=== PATIENT | female | born 1945 | race African-American/Black ===

== ENCOUNTER 2023-12-16 09:18 | Emergency (ER) | payer BC, OTHER ==
[~2023-12-16] VITALS: Ht 160 cm; Wt 96.5 kg
[2023-12-16 10:24] LABS: Basophils # (auto) 0 10 ^3/uL (0-0.2); Basophils % (auto) 0.2 % (0.0-2.0); Eosinophils # (auto) 0 10 ^3/uL (0-0.8); Eosinophils % (auto) 0.1 % (0.0-7.0); Hematocrit 34.9 % (36.0-46.0); Hemoglobin 12.3 g/dL (12.2-16.2); Lymphocytes # (auto) 1.1 10 ^3/uL (0.4-5.4); Lymphocytes % (auto) 5.7 % (10.0-50.0); Mean Corpuscular Hemoglobin 33.9 pg (28.0-32.0); Mean Corpuscular Hgb Conc. 35.2 g/dL (32.0-36.0); Mean Corpuscular Volume 96.3 fL (80.0-100.0); Monocytes # (auto) 1.4 10 ^3/uL (0-1.3); Monocytes % (auto) 7.2 % (0.0-12.0); Neutrophils # (auto) 16.9 10 ^3/uL (1.6-8.6); Neutrophils % (auto) 86.8 % (37.0-80.0); Platelet Count (auto) 283 10^3/uL (140-450); Red Blood Cells 3.62 10^6/uL (4.0-5.20); Red Cell Distribution Width 14.5 % (11.8-14.3); White Blood Cell 19.4 10^3/uL (4.4-10.8)
[2023-12-16 10:34] LABS: Chloride 102 mmol/L (98-107); Potassium 2.9 mmol/L (3.5-5.1); Sodium 137 mmol/L (136-145)
[2023-12-16 10:35] LABS: Anion Gap 7 (5-15); Calcium 9.2 mg/dL (8.7-10.4); Carbon Dioxide 28 mmol/L (20-30)
[2023-12-16 10:40] LABS: BUN/Creatinine Ratio 16.8 (10.0-20.0); Blood Urea Nitrogen 16 mg/dL (9-23); Glucose 96 mg/dL (74-106)
[2023-12-16] MEDS: SODIUM CHLORIDE 0.9% 1,000 ML IV ONE (11:15)
[2023-12-16] MEDS ORDERED: MAGNESIUM SULFATE 1GM/100ML 100 ML IV SCH (14:15)
[2023-12-16] MEDS ORDERED: POTASSIUM CHL 20 Meq TABLET PO ONE (14:15)
[2023-12-16] MEDS ORDERED: BACDST PO (16:27)
[2023-12-16] MEDS ORDERED: HYDR-4902 PO (17:13)
[2023-12-16] MEDS: HYDROcodone-ACET 5/325MG TAB PO ONE (18:03)
[2023-12-16 18:24] VITALS: BP 120/75; PULSE 85; RESP 20; TEMP 98.8; O2SAT 98
[2023-12-16] MEDS: KETOROLAC TROMETH 30 MG/ML 1ML VIAL IV ONE (19:05)
[2023-12-16] MEDS: cefTRIAXone 1GM/50ML D5W 50 ML IV ONE (19:06)
[2023-12-16] MEDS: metroNIDAZOLE 500MG/100ML 100 ML IV ONE (19:38)
== END 2023-12-16 20:04 | disposition home or self-care (01) ==
LOC: ER 09:18 → EDBD 09:18 → ER 20:04
DX: A41.9 Sepsis, unspecified organism (principal); E87.6 Hypokalemia; M51.36 Other intervertebral disc degeneration, lumbar region; N39.0 Urinary tract infection, site not specified; I10 Essential (primary) hypertension
CPT/HCPCS: 36415; 72100; 80048; 83605; 84484; 85025; 87040; 87077; 87186; 93005; 96361; 96365; 96368; 96375; 99291; J0696; J1885; J3490; J7030

== ENCOUNTER 2023-12-17 10:53 | Inpatient (IN) | payer BC ==
[~2023-12-17] VITALS: Ht 165.1 cm; Wt 105.3 kg
[~2023-12-17 10:53] MED LIST: BACDST PO; HYDR-4902 PO
[2023-12-17] MEDS: ACETAMINOPHEN 325 MG TAB PO ONE (11:18)
[2023-12-17] MEDS: SODIUM CHLORIDE 0.9% 1,000 ML IV ONE ×2 (11:29→11:32)
[2023-12-17] MEDS: KETOROLAC TROMETH 30 MG/ML 1ML VIAL IV ONE (11:32)
[2023-12-17] MEDS: cefTRIAXone 1GM/50ML D5W 50 ML IV ONE ×2 (11:32→13:57)
[2023-12-17 11:34] VITALS: RESP 18; O2SAT 98
[2023-12-17 11:46] LABS: Basophils # (auto) 0 10 ^3/uL (0-0.2); Basophils % (auto) 0.1 % (0.0-2.0); Eosinophils # (auto) 0 10 ^3/uL (0-0.8); Hematocrit 35.2 % (36.0-46.0); Hemoglobin 12.1 g/dL (12.2-16.2); Lymphocytes # (auto) 1.2 10 ^3/uL (0.4-5.4); Lymphocytes % (auto) 6.6 % (10.0-50.0); Mean Corpuscular Hemoglobin 33.5 pg (28.0-32.0); Mean Corpuscular Hgb Conc. 34.4 g/dL (32.0-36.0); Mean Corpuscular Volume 97.4 fL (80.0-100.0); Monocytes # (auto) 1.4 10 ^3/uL (0-1.3); Neutrophils # (auto) 14.9 10 ^3/uL (1.6-8.6); Neutrophils % (auto) 85.3 % (37.0-80.0); Platelet Count (auto) 257 10^3/uL (140-450); Red Blood Cells 3.61 10^6/uL (4.0-5.20); Red Cell Distribution Width 14.5 % (11.8-14.3); White Blood Cell 17.5 10^3/uL (4.4-10.8)
[2023-12-17 12:24] LABS: Chloride 102 mmol/L (98-107); Sodium 137 mmol/L (136-145)
[2023-12-17 12:25] LABS: Anion Gap 14 (5-15); Carbon Dioxide 21 mmol/L (20-30)
[2023-12-17 12:30] LABS: BUN/Creatinine Ratio 16.7 (10.0-20.0); Blood Urea Nitrogen 17 mg/dL (9-23); Glucose 158 mg/dL (74-106)
[2023-12-17] MEDS ORDERED: NITROGLYCERIN 0.4 MG SL TAB SL PRN (13:30)
[2023-12-17] MEDS ORDERED: VANCOMYCIN PER PHARMACY 0 MG IV SCH (13:30)
[2023-12-17] MEDS ORDERED: ONDANSETRON HCL 4 MG/2 ML VIAL IV PRN (13:30)
[2023-12-17] MEDS: POTASSIUM CHL 20 Meq TABLET PO ONE (14:01)
[2023-12-17 14:28] LABS: Urine Bacteria MOD /hpf (None Seen); Urine Blood 1+ /uL (Negative); Urine Clarity Turbid (Clear); Urine Mucus FEW (None Seen); Urine Protein, UAD 3+ (Negative); Urine Specific Gravity 1.034 (1.001-1.035); Urine Urobilinogen 2 mg/dL (Negative); Urine WBC 17 /hpf (0 - 5)
[2023-12-17 14:31] LABS: Urine Color Amber (Yellow)
[2023-12-17 15:27] VITALS: PULSE 76; RESP 17; O2SAT 98
[2023-12-17] MEDS: SODIUM CHLORIDE 0.9% 1,000 ML IV SCH (15:34)
[2023-12-17] MEDS: MAGNESIUM SULFATE 1GM/100ML 100 ML IV SCH (15:34)
[2023-12-17] MEDS: VANCOMYCIN 1GM/200ML 200 ML IV SCH (15:34)
[2023-12-17] MEDS: hydrALAZINE HCL 20 MG/ML VL IV PRN (17:27)
[2023-12-17] MEDS: POTASSIUM CHLORIDE 20 MEQ, LIDOCAINE 1% (LOCAL ANESTH.) 2 ML in SODIUM CHL 0.9% 100 ML IV ONE (17:27)
[2023-12-17 18:56] VITALS: BP 148/79; PULSE 79; RESP 18; TEMP 100.9; O2SAT 98
[2023-12-17 21:00] VITALS: BP 110/87; PULSE 77; RESP 18; TEMP 99.1; O2SAT 98
[2023-12-18] VITALS (7 sets, daily range): BP systolic 126–166; BP diastolic 76–106; PULSE 69–91; RESP 16–18; TEMP 97.9–102.1; O2SAT 96–99
[2023-12-18] MEDS: ACETAMINOPHEN 325 MG TAB PO PRN (00:39)
[2023-12-18] MEDS: HYDROcodone-ACET 5/325MG TAB PO PRN (02:28)
[2023-12-18 07:11] LABS: Anion Gap 10 (5-15); Carbon Dioxide 22 mmol/L (20-30); Chloride 106 mmol/L (98-107); Sodium 138 mmol/L (136-145)
[2023-12-18 07:12] LABS: Calcium 8.5 mg/dL (8.7-10.4)
[2023-12-18 07:15] LABS: Basophils # (auto) 0 10 ^3/uL (0-0.2); Basophils % (auto) 0.1 % (0.0-2.0); Eosinophils # (auto) 0 10 ^3/uL (0-0.8); Eosinophils % (auto) 0.1 % (0.0-7.0); Hematocrit 32.6 % (36.0-46.0); Hemoglobin 11.1 g/dL (12.2-16.2); Lymphocytes # (auto) 1.7 10 ^3/uL (0.4-5.4); Lymphocytes % (auto) 11.5 % (10.0-50.0); Mean Corpuscular Hemoglobin 33.2 pg (28.0-32.0); Mean Corpuscular Volume 97.7 fL (80.0-100.0); Monocytes # (auto) 1.5 10 ^3/uL (0-1.3); Monocytes % (auto) 10.5 % (0.0-12.0); Neutrophils # (auto) 11.3 10 ^3/uL (1.6-8.6); Neutrophils % (auto) 77.8 % (37.0-80.0); Nucleated Red Blood Cells % 0.2 %; Platelet Count (auto) 242 10^3/uL (140-450); Red Blood Cells 3.33 10^6/uL (4.0-5.20); Red Cell Distribution Width 14.7 % (11.8-14.3); White Blood Cell 14.5 10^3/uL (4.4-10.8)
[2023-12-18 07:16] LABS: Glucose 107 mg/dL (74-106)
[2023-12-18 07:17] LABS: BUN/Creatinine Ratio 20.5 (10.0-20.0); Blood Urea Nitrogen 17 mg/dL (9-23)
[2023-12-18] MEDS: cefTRIAXone 1GM/50ML D5W 50 ML IV SCH (08:48)
[2023-12-18] MEDS: ENOXAPARIN SOD 40 MG/0.4 ML SYRINGE SC SCH (10:17)
[2023-12-18] MEDS: POTASSIUM CHL 20 Meq TABLET PO ONE (12:28)
[2023-12-18] MEDS: SODIUM CHLORIDE 0.9% 1,000 ML IV SCH (12:34)
[2023-12-19 05:00] VITALS: BP 129/67; PULSE 81; RESP 17; TEMP 97.1; O2SAT 95
[2023-12-19 07:25] LABS: Basophils # (auto) 0 10 ^3/uL (0-0.2); Basophils % (auto) 0.1 % (0.0-2.0); Eosinophils # (auto) 0 10 ^3/uL (0-0.8); Eosinophils % (auto) 0.2 % (0.0-7.0); Hematocrit 32.9 % (36.0-46.0); Hemoglobin 11.4 g/dL (12.2-16.2); Lymphocytes # (auto) 1.9 10 ^3/uL (0.4-5.4); Lymphocytes % (auto) 13.3 % (10.0-50.0); Mean Corpuscular Hemoglobin 33.6 pg (28.0-32.0); Mean Corpuscular Hgb Conc. 34.7 g/dL (32.0-36.0); Mean Corpuscular Volume 96.7 fL (80.0-100.0); Monocytes # (auto) 1.7 10 ^3/uL (0-1.3); Monocytes % (auto) 11.4 % (0.0-12.0); Nucleated Red Blood Cells % 0.1 %; Platelet Count (auto) 284 10^3/uL (140-450); Red Cell Distribution Width 14.6 % (11.8-14.3); White Blood Cell 14.6 10^3/uL (4.4-10.8)
[2023-12-19 08:00] VITALS: PULSE 89
[2023-12-19 08:27] LABS: Anion Gap 11 (5-15); Carbon Dioxide 22 mmol/L (20-30); Chloride 102 mmol/L (98-107); Potassium 3.2 mmol/L (3.5-5.1); Sodium 135 mmol/L (136-145)
[2023-12-19 08:28] LABS: Calcium 8.5 mg/dL (8.7-10.4)
[2023-12-19 08:32] LABS: Glucose 96 mg/dL (74-106)
[2023-12-19 08:33] LABS: BUN/Creatinine Ratio 14.8 (10.0-20.0); Blood Urea Nitrogen 9 mg/dL (9-23); Magnesium 1.8 mg/dL (1.6-2.6)
[2023-12-19 09:00] VITALS: BP 198/111; PULSE 89; RESP 18; TEMP 98.3; O2SAT 97
[2023-12-19] MEDS: NIFEdipine ER 30 MG TAB PO ONE (10:58)
[2023-12-19] MEDS: MORPHINE SULFATE INJ 2 MG/ml SYRG IV PRN ×2 (11:00)
[2023-12-19] MEDS: VANCOMYCIN 750mg/150ml 150 ML IV SCH (11:31)
[2023-12-19 13:00] VITALS: BP 195/99; PULSE 90; RESP 18; TEMP 97.8; O2SAT 99
[2023-12-19] MEDS: MAGNESIUM SULFATE 1GM/100ML 100 ML IV SCH (13:06)
[2023-12-19] MEDS: MAGNESIUM SULFATE 1GM/100ML 100 ML IV ONE (15:08)
[2023-12-19] MEDS: LIDOCAINE 5% TOPICAL PATCH TOP ONE (16:44)
[2023-12-19] MEDS: POTASSIUM CHL 20 Meq TABLET PO ONE (16:44)
[2023-12-19 17:00] VITALS: BP 199/111; PULSE 115; RESP 19; TEMP 99.7; O2SAT 100
[2023-12-19 21:00] VITALS: BP 148/95; PULSE 95; RESP 20; TEMP 99; O2SAT 99
[2023-12-19] MEDS: LISINOPRIL 20 MG TAB PO SCH (21:50)
[2023-12-20] VITALS (7 sets, daily range): BP systolic 104–138; BP diastolic 7–78; PULSE 61–105; RESP 16–20; TEMP 97.7–98.7; O2SAT 96–99
[2023-12-20 08:15] LABS: Anion Gap 10 (5-15); Carbon Dioxide 27 mmol/L (20-30); Chloride 96 mmol/L (98-107); Potassium 3.3 mmol/L (3.5-5.1); Sodium 133 mmol/L (136-145)
[2023-12-20 08:16] LABS: Calcium 9.1 mg/dL (8.7-10.4)
[2023-12-20 08:20] LABS: Glucose 132 mg/dL (74-106)
[2023-12-20 08:21] LABS: BUN/Creatinine Ratio 12.3 (10.0-20.0); Blood Urea Nitrogen 8 mg/dL (9-23)
[2023-12-20 09:39] LABS: Basophils # (auto) 0 10 ^3/uL (0-0.2); Basophils % (auto) 0.2 % (0.0-2.0); Eosinophils # (auto) 0 10 ^3/uL (0-0.8); Eosinophils % (auto) 0.2 % (0.0-7.0); Hematocrit 37.2 % (36.0-46.0); Hemoglobin 12.8 g/dL (12.2-16.2); Lymphocytes # (auto) 1.1 10 ^3/uL (0.4-5.4); Lymphocytes % (auto) 9.5 % (10.0-50.0); Mean Corpuscular Hemoglobin 33.5 pg (28.0-32.0); Mean Corpuscular Hgb Conc. 34.4 g/dL (32.0-36.0); Mean Corpuscular Volume 97.3 fL (80.0-100.0); Monocytes # (auto) 1.4 10 ^3/uL (0-1.3); Monocytes % (auto) 12.4 % (0.0-12.0); Neutrophils # (auto) 8.8 10 ^3/uL (1.6-8.6); Neutrophils % (auto) 77.7 % (37.0-80.0); Nucleated Red Blood Cells % 0.2 %; Platelet Count (auto) 295 10^3/uL (140-450); Red Blood Cells 3.83 10^6/uL (4.0-5.20); Red Cell Distribution Width 14.8 % (11.8-14.3); White Blood Cell 11.3 10^3/uL (4.4-10.8)
[2023-12-20] MEDS: LIDOCAINE 5% TOPICAL PATCH TOP SCH (09:39)
[2023-12-20] MEDS: NIFEdipine ER 30 MG TAB PO SCH (09:39)
[2023-12-20] MEDS: POTASSIUM CHL 20 Meq TABLET PO ONE (09:51)
[2023-12-20] MEDS ORDERED: LISI20TA56 PO (14:31)
[2023-12-20] MEDS ORDERED: LIDO5DIS21 TOP (14:31)
== END 2023-12-20 17:45 | disposition home health service (06) | DRG 871 ==
LOC: ER 10:53 → OVERFLOW 13:25 → WEST WING 18:43
PROVIDERS: ADMIT Hospitalist; ATTEND Hospitalist
DX: A41.9 Sepsis, unspecified organism (principal); N17.0 Acute kidney failure with tubular necrosis; I48.20 Chronic atrial fibrillation, unspecified; N39.0 Urinary tract infection, site not specified; M51.36 Other intervertebral disc degeneration, lumbar region; E66.9 Obesity, unspecified; M54.9 Dorsalgia, unspecified; I16.0 Hypertensive urgency; E87.6 Hypokalemia; M47.816 Spondylosis without myelopathy or radiculopathy, lumbar region; E86.0 Dehydration; I10 Essential (primary) hypertension; Z79.891 Long term (current) use of opiate analgesic; Z79.899 Other long term (current) drug therapy; Z68.37 Body mass index [BMI] 37.0-37.9, adult
CPT/HCPCS: 36415; 72131; 80048; 80202; 81001; 83605; 83735; 84484; 85025; 87040; 87086; 96365; 96375; G0378; J1885; J2001

== ENCOUNTER 2023-12-27 06:22 | Inpatient (IN) | payer BC ==
[~2023-12-27] VITALS: Ht 165.1 cm; Wt 96.7 kg
[~2023-12-27 06:22] MED LIST changes: -HYDR-4902 PO; +LIDO5DIS21 TOP; +LISI20TA56 PO
[2023-12-27 07:43] LABS: Basophils # (auto) 0.1 10 ^3/uL (0-0.2); Basophils % (auto) 0.7 % (0.0-2.0); Eosinophils # (auto) 0 10 ^3/uL (0-0.8); Eosinophils % (auto) 0.4 % (0.0-7.0); Hematocrit 31.8 % (36.0-46.0); Hemoglobin 11.3 g/dL (12.2-16.2); Lymphocytes # (auto) 1.3 10 ^3/uL (0.4-5.4); Lymphocytes % (auto) 16.3 % (10.0-50.0); Mean Corpuscular Hemoglobin 33.9 pg (28.0-32.0); Mean Corpuscular Hgb Conc. 35.4 g/dL (32.0-36.0); Mean Corpuscular Volume 95.9 fL (80.0-100.0); Monocytes # (auto) 0.9 10 ^3/uL (0-1.3); Monocytes % (auto) 11.1 % (0.0-12.0); Neutrophils # (auto) 5.5 10 ^3/uL (1.6-8.6); Neutrophils % (auto) 71.5 % (37.0-80.0); Nucleated Red Blood Cells % 0.1 %; Platelet Count (auto) 506 10^3/uL (140-450); Red Blood Cells 3.32 10^6/uL (4.0-5.20); Red Cell Distribution Width 14.3 % (11.8-14.3); White Blood Cell 7.7 10^3/uL (4.4-10.8)
[2023-12-27 07:44] LABS: Alanine Aminotransferase 13 U/L (7-40); Albumin 3.8 g/dL (3.2-4.8); Alkaline Phosphatase 65 U/L (46-116); Anion Gap 10 (5-15); Aspartate Aminotransferase 17 U/L (13-40); BUN/Creatinine Ratio 18.7 (10.0-20.0); Bilirubin, Total 0.5 mg/dL (0.2-1.0); Blood Urea Nitrogen 37 mg/dL (9-23); Carbon Dioxide 24 mmol/L (20-31); Chloride 99 mmol/L (98-107); Glucose 84 mg/dL (74-106); INR 1.04 (0.9-1.15); Magnesium 1.9 mg/dL (1.6-2.6); Partial Thromboplastin Time 27.1 SEC (24.5-34.5); Potassium 3.8 mmol/L (3.5-5.1); Sodium 133 mmol/L (136-145); Total Protein 7.2 g/dL (5.7-8.2)
[2023-12-27 08:30] VITALS: PULSE 51; RESP 12; O2SAT 97
[2023-12-27] MEDS: DexAMETHasone SOD PHOS 10MG/1ML VIAL INJ IV ONE (10:41)
[2023-12-27] MEDS: MORPHINE SULFATE 4 MG/ML SYR/VIAL IV ONE (10:43)
[2023-12-27] MEDS ORDERED: MORPHINE SULFATE INJ 2 MG/ml SYRG IV PRN (16:45)
[2023-12-27] MEDS ORDERED: HYDROcodone-ACET 5/325MG TAB PO PRN ×2 (16:45)
[2023-12-27] MEDS ORDERED: NITROGLYCERIN 0.4 MG SL TAB SL PRN (16:45)
[2023-12-27 17:29] LABS: Triglycerides 94 mg/dL (< 150)
[2023-12-27 17:30] LABS: LDL Cholesterol 114 mg/dL (< 100)
[2023-12-27 17:31] LABS: Cholesterol 161 mg/dL (< 200); HDL Cholesterol 35 mg/dL (40-59)
[2023-12-27 20:00] VITALS: PULSE 48; RESP 15; O2SAT 96
[2023-12-27] MEDS ORDERED: NITR100C6 PO (21:44)
[2023-12-27] MEDS ORDERED: HYDR-4611 (21:44)
[2023-12-27] MEDS ORDERED: MET50T PO (21:44)
[2023-12-27] MEDS ORDERED: APIX5TAB PO (21:44)
[2023-12-27 21:47] VITALS: BP 141/58; PULSE 46; RESP 19; TEMP 98; O2SAT 91
[2023-12-27] MEDS: CYCLOBENZAPRINE HCL 10 MG TAB PO SCH (22:52)
[2023-12-27] MEDS: SENNA 8.6 MG TAB PO SCH (22:52)
[2023-12-27] MEDS: ATORVASTATIN 20 MG TAB PO SCH (22:53)
[2023-12-28] VITALS (8 sets, daily range): BP systolic 108–149; BP diastolic 54–97; PULSE 41–83; RESP 16–22; TEMP 97.5–98.7; O2SAT 91–100
[2023-12-28] MEDS: ENOXAPARIN SOD 30 MG/0.3 ML SYRINGE SC SCH (09:46)
[2023-12-28] MEDS: ASPirin-EC 81 mg tab PO SCH (09:46)
[2023-12-28] MEDS: LISINOPRIL 20 MG TAB PO SCH (09:46)
[2023-12-28] MEDS: LIDOCAINE 5% TOPICAL PATCH TOP SCH (09:47)
[2023-12-28] MEDS ORDERED: ENOXAPARIN SOD 40 MG/0.4 ML SYRINGE SC SCH (10:00)
[2023-12-29] VITALS (8 sets, daily range): BP systolic 100–123; BP diastolic 46–50; PULSE 43–91; RESP 14–18; TEMP 97.5–98.5; O2SAT 94–100
[2023-12-29] MEDS ORDERED: CYCL-611 PO (15:25)
[2023-12-29] MEDS ORDERED: HYDR-4611 PO (15:25)
[2023-12-29] MEDS ORDERED: LIDO5DIS21 TOP ×2 (15:25→15:32)
[2023-12-29] MEDS ORDERED: MET50T PO (15:25)
[2023-12-29] MEDS ORDERED: SENN-105 PO (15:25)
[2023-12-29] MEDS ORDERED: CYCL-837 PO (15:32)
[2023-12-29] MEDS ORDERED: METO25TA5 PO (15:32)
[2023-12-29] MEDS ORDERED: ACE3T PO (15:32)
[2023-12-29] MEDS ORDERED: SENN-58 PO (15:32)
== END 2023-12-29 19:45 | disposition home or self-care (01) | DRG 206 ==
LOC: EDBD 06:22 → ER 06:22 → TELE 16:42 → TELE-WESTW 16:42
PROVIDERS: ADMIT Hospitalist; ATTEND Hospitalist
DX: M94.0 Chondrocostal junction syndrome [Tietze] (principal); N18.4 Chronic kidney disease, stage 4 (severe); E11.22 Type 2 diabetes mellitus with diabetic chronic kidney disease; I12.9 Hypertensive chronic kidney disease with stage 1 through stage 4 chronic kidney disease, or unspecified chronic kidney disease; I25.10 Atherosclerotic heart disease of native coronary artery without angina pectoris; G89.29 Other chronic pain; M48.061 Spinal stenosis, lumbar region without neurogenic claudication; I48.91 Unspecified atrial fibrillation; M47.816 Spondylosis without myelopathy or radiculopathy, lumbar region; Z82.49 Family history of ischemic heart disease and other diseases of the circulatory system; Z79.899 Other long term (current) drug therapy; Z79.4 Long term (current) use of insulin
CPT/HCPCS: 36415; 71045; 72148; 80053; 80061; 83036; 83735; 83880; 84439; 84443; 84484; 85025; 85610; 85730; 87081; 93005; 93306; 96374; 96375; G0378; J1100

== ENCOUNTER 2024-01-12 11:58 | Emergency (ER) | payer BC ==
[~2024-01-12 11:58] MED LIST changes: +ACE3T PO; +APIX5TAB PO; -BACDST PO; +CYCL-837 PO; +METO25TA5 PO; +SENN-58 PO
[2024-01-12 12:49] VITALS: TEMP 97.8
[2024-01-12] MEDS: METOCLOPRAMIDE HCL 5MG/ml INJ 2ml VIAL IV ONE (13:30)
[2024-01-12] MEDS: SODIUM CHLORIDE 0.9% 1,000 ML IV ONE (14:30)
[2024-01-12 14:48] LABS: Basophils # (auto) 0.1 10 ^3/uL (0-0.2); Basophils % (auto) 0.7 % (0.0-2.0); Eosinophils # (auto) 0.2 10 ^3/uL (0-0.8); Eosinophils % (auto) 1.9 % (0.0-7.0); Hematocrit 32.1 % (36.0-46.0); Lymphocytes # (auto) 1.6 10 ^3/uL (0.4-5.4); Lymphocytes % (auto) 17.4 % (10.0-50.0); Mean Corpuscular Hemoglobin 33.1 pg (28.0-32.0); Mean Corpuscular Hgb Conc. 34.1 g/dL (32.0-36.0); Mean Corpuscular Volume 96.9 fL (80.0-100.0); Monocytes # (auto) 0.7 10 ^3/uL (0-1.3); Monocytes % (auto) 7.9 % (0.0-12.0); Neutrophils # (auto) 6.8 10 ^3/uL (1.6-8.6); Neutrophils % (auto) 72.1 % (37.0-80.0); Platelet Count (auto) 434 10^3/uL (140-450); Red Blood Cells 3.31 10^6/uL (4.0-5.20); Red Cell Distribution Width 14.8 % (11.8-14.3); White Blood Cell 9.4 10^3/uL (4.4-10.8)
[2024-01-12 15:11] LABS: Alanine Aminotransferase 10 U/L (7-40); Albumin 3.7 g/dL (3.2-4.8); Alkaline Phosphatase 81 U/L (46-116); Anion Gap 8 (5-15); Aspartate Aminotransferase 15 U/L (13-40); Blood Urea Nitrogen 18 mg/dL (9-23); Calcium 9.8 mg/dL (8.7-10.4); Carbon Dioxide 27 mmol/L (20-31); Chloride 103 mmol/L (98-107); Glucose 92 mg/dL (74-106); Magnesium 1.7 mg/dL (1.6-2.6); Potassium 4.1 mmol/L (3.5-5.1); Sodium 138 mmol/L (136-145)
[2024-01-12 15:12] LABS: Bilirubin, Total 0.3 mg/dL (0.2-1.0); Total Protein 7.4 g/dL (5.7-8.2)
[2024-01-12 15:15] VITALS: PULSE 69; RESP 11; O2SAT 97
[2024-01-12] MEDS: PANTOPRAZOLE 40 MG TAB PO ONE (15:20)
[2024-01-12 17:14] LABS: Urine Bacteria None Seen /hpf (None Seen)
[2024-01-12 17:23] LABS: Urine Blood Negative /uL (Negative); Urine Clarity Turbid (Clear); Urine Color Light-Yellow (Yellow); Urine Protein, UAD Negative (Negative); Urine Specific Gravity 1.007 (1.001-1.035); Urine Urobilinogen Normal (Negative); Urine WBC 2 /hpf (0 - 5)
[2024-01-12] MEDS ORDERED: METO-281 PO (17:47)
[2024-01-12] MEDS ORDERED: OMEP20TA PO (17:47)
[2024-01-12 18:00] VITALS: BP 148/77; PULSE 67; RESP 12; O2SAT 99
== END 2024-01-12 18:04 | disposition home or self-care (01) ==
LOC: EDBD 11:58 → ER 11:58
DX: K22.4 Dyskinesia of esophagus (principal); I10 Essential (primary) hypertension; Z79.01 Long term (current) use of anticoagulants; Z79.899 Other long term (current) drug therapy
CPT/HCPCS: 36415; 71046; 80053; 81001; 83735; 84443; 84484; 85025; 85379; 93005; 96360; 96361; 99285; J7030